=== PATIENT | female | born 1995 | race Caucasian/White ===

== ENCOUNTER 2017-05-13 09:17 | Emergency (ER) | payer SELFPAY ==
[~2017-05-13] VITALS: Ht 170.2 cm; Wt 100.0 kg
[2017-05-13 09:45] VITALS: BP 140/77
[2017-05-13] MEDS ORDERED: CIPROFLOXACIN HCL 0.3% 2.5 ML OPHTHALMIC SOLUTION OD ONE (11:30)
[2017-05-13] MEDS ORDERED: PROPARACAINE HCL 0.5% 15 ML OPHTHALMIC SOLUTION OD ONE (11:30)
== END 2017-05-13 12:07 | disposition home or self-care (01) ==
LOC: EMS 09:19
DX: H10.89 Other conjunctivitis (principal); Z88.1 Allergy status to other antibiotic agents; Z94.7 Corneal transplant status
CPT/HCPCS: 99283

== ENCOUNTER 2022-12-20 13:24 | Emergency (ER) | payer OTHER ==
[~2022-12-20] VITALS: Ht 170.2 cm; Wt 100.0 kg
[2022-12-20] MEDS ORDERED: TraMADol HCL 50 MG TABLET PO ONE (16:00)
[2022-12-20 16:53] LABS: COVID AG,FIA SOURCE NASAL SWAB
[2022-12-20] MEDS ORDERED: CEPH-558 PO (16:58)
[2022-12-20 17:00] VITALS: BP 105/64
[2022-12-20] MEDS ORDERED: TRAM-559 PO (17:10)
== END 2022-12-20 17:11 | disposition home or self-care (01) ==
LOC: EMS 13:34
DX: S91.209A Unspecified open wound of unspecified toe(s) with damage to nail, initial encounter (principal); Z98.890 Other specified postprocedural states; Z88.8 Allergy status to other drugs, medicaments and biological substances; Z20.822 Contact with and (suspected) exposure to COVID-19; X58.XXXA Exposure to other specified factors, initial encounter; Y93.89 Activity, other specified; Y92.89 Other specified places as the place of occurrence of the external cause; Y99.8 Other external cause status
CPT/HCPCS: 99284